=== PATIENT | female | born 1960 | race Caucasian/White ===

== ENCOUNTER 2022-03-18 17:28 | Inpatient (IN) | payer BC ==
[~2022-03-18] VITALS: Ht 161 cm; Wt 42.0 kg
[2022-03-18 17:55] LABS: BASOPHILS # (AUTO) 0.1 10^3/uL (0.0-0.1); BASOPHILS % (AUTO) 1 % (0-10); EOSINOPHILS # (AUTO) 0.3 10^3/uL (0.0-0.3); EOSINOPHILS % (AUTO) 2 % (0-10); HEMATOCRIT 42 % (35-52); HEMOGLOBIN 14.3 g/dL (11.5-16.0); LYMPHOCYTES # (AUTO) 2.9 10^3/uL (1.0-4.0); LYMPHOCYTES % (AUTO) 20 % (12-44); MEAN CORPUSCULAR HEMOGLOBIN 32 pg (25-34); MEAN CORPUSCULAR HGB CONC 34 g/dL (32-36); MEAN CORPUSCULAR VOLUME 93 fL (80-99); MEAN PLATELET VOLUME 9.7 fL (9.0-12.2); MONOCYTES # (AUTO) 1.4 10^3/uL (0.0-1.0); MONOCYTES % (AUTO) 10 % (0-12); NEUTROPHILS # (AUTO) 9.6 10^3/uL (1.8-7.8); NEUTROPHILS % (AUTO) 67 % (42-75); PLATELET COUNT 284 10^3/uL (130-400); WHITE BLOOD COUNT 14.3 10^3/uL (4.3-11.0)
[2022-03-18 17:57] LABS: ALBUMIN 4.1 GM/DL (3.2-4.5); POTASSIUM 3.8 MMOL/L (3.6-5.0)
[2022-03-18 17:58] LABS: CALCIUM 9.5 MG/DL (8.5-10.1)
[2022-03-18 17:59] LABS: TOTAL PROTEIN 7.6 GM/DL (6.4-8.2)
[2022-03-18 18:01] LABS: BILIRUBIN,TOTAL 0.4 MG/DL (0.1-1.0)
[2022-03-18 18:03] LABS: CREATININE SERUM 0.68 MG/DL (0.60-1.30)
--- NOTE | 2022-03-18 18:06 | Diagnostic Imaging Report ---
INDICATION: Slurred speech and right arm tingling. TECHNIQUE: Multiple contiguous axial images were obtained through the brain without the use of intravenous contrast. Auto Exposure Controls were utilized during the CT exam to meet ALARA standards for radiation dose reduction. COMPARISON: There is no prior study for comparison. There is no extra-axial fluid collection. No intracranial hemorrhage. No intracranial mass or mass effect. No midline shift. The ventricles are normal in size and position. There appears to be a small old infarct in the left occipital lobe. Calvarial windows appear normal. 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 No acute hemorrhage or acute intracranial finding. Dictated by: Dictated on workstation # [id number]
--- NOTE | 2022-03-18 18:08 | ED Neurological Problem ---
General Chief Complaint: Neurological Problems Stated Complaint: ARM BECOMING NUMB, HARD TO TALK Nursing Triage Note: PT AMB TO [facility] 7 WITH COMPLAINT OF SLURRED SPEECH AND RIGHT ARM WEAKNESS. STATES SYMPTOMS STARTED A FEW DAYS AGO. Source: patient Exam Limitations: no limitations History of Present Illness Date Seen by Provider: Mar 18, 2022 Time Seen by Provider: 17:45 Initial Comments This is a 61-year-old female who presented to ER with complaints of right hand numbness and intermittent slurring of speech. Symptom onset was 2 days ago. States that the symptoms have been intermittent for several days, today her symptoms began this morning. She has no PCP, reports no past medical history other than carpal tunnel in her right hand. She is a pack per day smoker with chronic cough. Has no numbness of her lower extremities, forearm, upper arm or shoulder. No facial drooping or numbness. Denies recent fall or trauma. No slurring of speech at this time. Does not take any home medications. Denies alcohol use and illicit drug use including marijuana. Denies fever, chills, vision changes, shortness of breath, chest pain, nausea, vomiting, diarrhea, abdominal pain, dysuria, or hematuria. Allergies and Home Medications Allergies Coded Allergies: No Known Drug Allergies (Unverified , 03/18/22) Patient Home Medication List Home Medication List Reviewed: Yes Review of Systems Review of Systems Constitutional: see HPI Past Lcktzsi-Vnutaq-Dcpxvv Hx Patient Social History Tobacco Use?: Yes Tobacco type used: Cigarettes Smoking Status: Current Everyday Smoker Use of E-Cig and/or Vaping dev: No Substance use?: No Alcohol Use?: No Pt feels they are or have been: No Physical Exam Vital Signs Vital Signs - First Documented 03/18/22 17:33 Temp 36.3 Pulse 90 Resp 25 B/P (MAP) 140/104 (116) Pulse Ox 91 O2 Delivery Room Air Capillary Refill : Less Than 3 Seconds Height, Weight, BMI Height: '" Weight: lbs. oz. 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 as tested, no motor/sensory deficits, alert, normal mood/affect, oriented x 3; No aphasia, No motor weakness, No sensory deficit Crainal Nerves: normal hearing, normal speech, PERRL Coordination/Gait: normal finger to nose, normal gait Motor/Sensory: no motor deficit, no sensory deficit, no pronator drift Skin: normal color, warm/dry Stroke NIH Stroke Scale Assessment Select: Initial Level of Consciousness: 0=Alert (0), Level of Consciousness- Questions: 0=Answers both month/age (0), LOC Commands: 0=Performs both tasks (0), Visual King: 0=No visual loss (0), Facial Movement (Facial Paresis): 0=Normal symmetrical mnt (0), Motor Function-Arms Right: 0=No drift (0), Motor Function-Arms Left: 0=No drift (0), Motor Function-Legs Right: 0=No drift (0), Motor Function-Legs Left: 0=No drift (0), Limb Ataxia: 0=Absent (0), Sensory: 0=Normal:no loss (0), Best Language: 0=No aphasia (0), Dysarthria: 0=Normal (0), Extinction & Inattention: 0=No abnormality (0), Total: 0 Focused Exam Lactate Level 03/18/22 19:07: Lactic Acid Level 0.81 Lactic Acid Level Laboratory Tests Test 03/18/22 19:07 Lactic Acid Level 0.81 MMOL/L (0.50-2.00) Progress/Results/Core Measures Results/Orders Lab Results Laboratory Tests Test 03/18/22 17:39 03/18/22 18:16 03/18/22 19:00 03/18/22 19:07 Range/Units White Blood Count 14.3 H 4.3-11.0 10^3/uL Red Blood Count 4.54 3.80-5.11 10^6/uL Hemoglobin 14.3 11.5-16.0 g/dL Hematocrit 42 35-52 % Mean Corpuscular Volume 93 80-99 fL Mean Corpuscular Hemoglobin 32 25-34 pg Mean Corpuscular Hemoglobin Concent 34 32-36 g/dL Red Cell Distribution Width 13.2 10.0-14.5 % Platelet Count 284 130-400 10^3/uL Mean Platelet Volume 9.7 9.0-12.2 fL Immature Granulocyte % (Auto) 1 % Neutrophils (%) (Auto) 67 42-75 % Lymphocytes (%) (Auto) 20 12-44 % Monocytes (%) (Auto) 10 0-12 % Eosinophils (%) (Auto) 2 0-10 % Basophils (%) (Auto) 1 0-10 % Neutrophils # (Auto) 9.6 H 1.8-7.8 10^3/uL Lymphocytes # (Auto) 2.9 1.0-4.0 10^3/uL Monocytes # (Auto) 1.4 H 0.0-1.0 10^3/uL Eosinophils # (Auto) 0.3 0.0-0.3 10^3/uL Basophils # (Auto) 0.1 0.0-0.1 10^3/uL Immature Granulocyte # (Auto) 0.1 0.0-0.1 10^3/uL Neutrophils % (Manual) 63 % Lymphocytes % (Manual) 24 % Monocytes % (Manual) 9 % Eosinophils % (Manual) 3 % Basophils % (Manual) 1 % Band Neutrophils 0 % Blood Morphology Comment NORMAL Prothrombin Time 13.5 12.2-14.7 SEC INR Comment 1.0 0.8-1.4 Activated Partial Thromboplast Time 36 H 24-35 SEC D-Dimer > 20.00 H 0.00-0.49 UG/ML Sodium Level 137 135-145 MMOL/L Potassium Level 3.8 3.6-5.0 MMOL/L Chloride Level 104 98-107 MMOL/L Carbon Dioxide Level 23 21-32 MMOL/L Anion Gap 10 5-14 MMOL/L Blood Urea Nitrogen 14 7-18 MG/DL Creatinine 0.68 0.60-1.30 MG/DL Estimat Glomerular Filtration Rate 100 BUN/Creatinine Ratio 21 Glucose Level 147 H 70-105 MG/DL Calcium Level 9.5 8.5-10.1 MG/DL Corrected Calcium 9.4 8.5-10.1 MG/DL Total Bilirubin 0.4 0.1-1.0 MG/DL Aspartate Amino Transf (AST/SGOT) 25 5-34 U/L Alanine Aminotransferase (ALT/SGPT) 23 0-55 U/L Alkaline Phosphatase 92 40-136 U/L Troponin I 0.562 *H <0.028 NG/ML C-Reactive Protein High Sensitivity 1.04 H 0.00-0.50 MG/DL Total Protein 7.6 6.4-8.2 GM/DL Albumin 4.1 3.2-4.5 GM/DL Procalcitonin 0.07 <0.10 NG/ML Thyroid Stimulating Hormone (TSH) 0.21 L 0.35-4.94 UIU/ML Urine Color YELLOW Urine Clarity CLOUDY Urine pH 7.0 5-9 Urine Specific [place] 1.020 1.016-1.022 Urine Protein TRACE H NEGATIVE Urine Glucose (UA) NEGATIVE NEGATIVE Urine Ketones NEGATIVE NEGATIVE Urine Nitrite POSITIVE H NEGATIVE Urine Bilirubin NEGATIVE NEGATIVE Urine Urobilinogen 0.2 < = 1.0 MG/DL Urine Leukocyte Esterase TRACE H NEGATIVE Urine RBC (Auto) TRACE-I H NEGATIVE Urine RBC 0-2 /HPF Urine WBC 0-2 /HPF Urine Squamous Epithelial Cells 0-2 /HPF Urine Crystals NONE /LPF Urine Bacteria LARGE H /HPF Urine Casts NONE /LPF Urine Mucus NEGATIVE /LPF Urine Culture Indicated YES Influenza Type A (RT-PCR) Not Detected Not Detecte Influenza Type B (RT-PCR) Not Detected Not Detecte SARS-CoV-2 RNA (RT-PCR) Not Detected Not Detecte Lactic Acid Level 0.81 0.50-2.00 MMOL/L My Orders Orders - 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 Accucheck Stat ONCE (03/18/22 17:41) Ekg Tracing (03/18/22 17:42) Cbc With Automated Diff (03/18/22 17:43) Protime With Inr (03/18/22 17:43) Partial Thromboplastin Time (03/18/22 17:43) Comprehensive Metabolic Panel (03/18/22 17:43) Fibrin Degradation Products (03/18/22 17:43) Troponin I Ada (03/18/22 17:43) Ua Culture If Indicated (03/18/22 17:43) Chest 1 View, Ap/Pa Only (03/18/22 17:43) Nothing By Mouth (03/18/22 Dinner) Ed Iv/Invasive Line Start (03/18/22 17:43) Vital Signs Stroke Patient Q15M (03/18/22 17:43) Ct Head Wo-R/O Stroke (03/18/22 17:43) O2 (03/18/22 17:43) Intake & Output 06,14,22 (03/18/22 17:43) Monitor-Rhythm Ecg Trace Only (03/18/22 17:43) Dysphagia Screening Tool [id number] (03/18/22 17:43) Lipid Panel (03/19/22 06:00) Hemoglobin A1c (03/18/22 17:43) Thyroid Stimulating Hormone (03/18/22 17:51) Manual Differential (03/18/22 17:39) Urine Culture (03/18/22 18:16) Aspirin Chewable Tablet (Baby Aspirin Ch (03/18/22 18:45) Ceftriaxone 1 Gm Pre-Mix (Rocephin 1 Gm (03/18/22 18:45) Lactic Acid Analyzer (03/18/22 18:38) Ct Angio Chest W (03/18/22 18:38) Iohexol Injection (Omnipaque 350 Mg/Ml 1 (03/18/22 19:00) Received Contrast (Hold Metformin- Contr (03/18/22 19:00) Ns (Ivpb) (Sodium Chloride 0.9% Ivpb Bag (03/18/22 19:00) Blood Culture (03/18/22 18:51) Ns Iv 1000 Ml (Sodium Chloride 0.9%) (03/18/22 19:00) Covid 19 Inhouse Test (03/18/22 18:51) Influenza A And B By Pcr (03/18/22 18:51) Hs C Reactive Protein (03/18/22 18:51) Procalcitonin (Pct) (03/18/22 18:51) Metoprolol Succinate (Xl) Tab (Toprol Xl (03/18/22 20:15) Medications Given in ED Current Medications Medications Dose Ordered Sig/Ibrahima Route Start Time Stop Time Status Last Admin Dose Admin Aspirin 324 mg ONCE ONCE PO 03/18/22 18:45 03/18/22 18:46 DC 03/18/22 19:06 324 MG Ceftriaxone Sodium/Dextrose 50 ml @ 100 mls/hr ONCE ONCE IV 03/18/22 18:45 03/18/22 19:14 DC 03/18/22 19:08 100 MLS/HR Iohexol 100 ml ONCE ONCE IV 03/18/22 19:00 03/18/22 19:01 DC 03/18/22 18:56 58 ML Sodium Chloride 100 ml ONCE ONCE IV 03/18/22 19:00 03/18/22 19:01 DC 03/18/22 18:56 80 ML Vital Signs/I&O 03/18/22 17:33 Temp 36.3 Pulse 90 Resp 25 B/P (MAP) 140/104 (116) Pulse Ox 91 O2 Delivery Room Air Blood Pressure Mean: 116 FSBG Bedside Testing Finger Stick Blood Glucose: 139 Progress Progress Note : Progress Note Patient presents with symptoms concerning for acute CVA versus TIA. Differential diagnosis includes AMI, hypoglycemia or other metabolic derangement. She has a chronically ill appearance. Given her 40+ pack year history would be concerned for metastatic disease. However, presentation more concerning for TIA versus CVA. EKG without evidence of STEMI. Fingerstick blood sugar not hypoglycemic and clinical picture does not suggest other stroke mimic. Will plan to work-up for acute CVA\\TIA. Stroke protocol ordered, she has not been evaluated by her primary care provider in over 7 years. We will add hemoglobin A1c, TSH. On exam she has no focal or gross neurological deficits at this time. CBC reviewed and she is noted to have a WBC of 14.3, platelet count normal at 284, no left shift. Her electrolytes on her chemistry are within normal limits, creatinine 0.68, BUN 14, hemoglobin A1c pending. Her LFTs are unremarkable. She was noted to have an elevated troponin 0.562, CRP 1.04, TSH 0.21. Her procalcitonin is 0.07. She was found to have a significantly elevated D-dimer greater than 20.00. Again this would cause concern for metastatic origin versus acute pulmonary embolism. Her initial oxygen saturation was 90% on room air. Orders placed for CT angio chest, ABG, repeat troponin. Her chest x-ray showed concern for right lung base pneumonia. Her head CT showed a small old infarct in her left occipital lobe. No acute hemorrhage or intracranial finding. CT angio chest was negative for pulmonary embolism. Ther e is adenopathy in the mediastinum and right hilum findings are worrisome for neoplastic process. Consider follow-up PET scan for further evaluation. Additionally there is an extensive infiltrate in the right lower lobe compatible with pneumonia., She has severe diffuse emphysematous changes with questionable bilateral adrenal thickening. Due to significant pneumonia, concern for metastatic process, no primary care or established provider for follow-up recommending inpatient admission. Orders given for Rocephin 1 g IV. Reviewed case with Dr. Jiang, hospitalist on-call. She accepted admission to cardiac stepdown unit. Request consultation with cardiology. Contact made with Dr. Acuña, farmworker livestock and he recommended admission, start beta-ava, and aspirin. Her first dose of aspirin was given in the ER. States that we can cancel repeat troponin. Her oxygen was 97% on carlos m air so ABG was discontinued at this time. Throughout her entire emergency department visit she never had any complaints of shortness of breath or chest pain. Again making metastatic process the more likely diagnosis with underlying pneumonia. Discussed with her that she is a high risk for CVA as it sound like she had some TIA symptoms and I recommend admission for treatment of her pneumonia and management of chronic undiagnosed underlying processes. States that she did not want to be hospitalized and would prefer to go home. Reviewed the severity of her symptoms and she needs to have close follow-up, she does not have a primary care provider so would not advisable for her to discharge AGAINST MEDICAL ADVICE. Strongly encouraged her to stay so we can complete her CVA work-up. She is agreeable to hospital admission. States that she wanted to go outside and "feed my habit", when asked to clarify stated she wanted to go outside and have a cigarette. Discussed that she will be unable to smoke during her hospital admission and I would be glad to provide her with nicotine patch or alternative, she declined stating nicotine substitutes make her feel "icky". While waiting for bed assignment she started to become very anxious stating she needed to go outside and have a cigarette. Again offered a nicotine alternative and stated that she would not be allowed to go outside and smoke as this is a smoke-free campus as well as it is not advisable with her given health status. She was able to settle back in ED cot. No additional needs or concerns voiced. Initial ECG Impression Date: Mar 18, 2022 Initial ECG Impression Time: 17:41 Initial ECG Rate: 90 Initial ECG Rhythm: Normal Sinus Initial ECG Intervals: Normal Initial ECG Impression: Nonspecific Changes Initial ECG Comparisson: No Previous ECG Available Diagnostic Imaging Diagonstic Imaging: CT Time of Consult: 18:06 Reviewed: Other (Upon review there is no large hemorrhage, ischemia, or mass-effect seen, pending radiology review. ), Reviewed by Mi Diagonstic Imaging: Xray Plain Films/CT/US/NM/MRI: chest Time of Consult: 18:07 Reviewed: Other ( x-ray reviewed, she is noted to have right mid and lower lobe opacities. No pneumothorax. Pending radiology review.), Reviewed by Mi Diagonstic Imaging: CT (angio) Plain Films/CT/US/NM/MRI: chest Comments Impression: 1. No evidence for pulmonary embolism. 2. Airspace consolidation noted involving the right lower lobe posteriorly. In addition, there is an ill-defined hypoattenuating component along the posterior aspect of the airspace consolidation measuring 1.2 x 4.6 x 3 cm. The primary consideration is pneumonia with an internal area of necrotic components (necrotizing pneumonia). Alternatively, a poorly encapsulated developing parenchymal abscess is also a consideration. 3. There is a prominent right perihilar and subcarinal lymphadenopathy encaps ulating the regional pulmonary artery segments with the lymph nodes measuring up to 2 cm in size. Less prominent left hilar lymph node is noted measuring 1 cm with nonspecific AP window lymph nodes. These are presumed reactive. However, follow-up resolution is recommended. 4. Minimal subsegmental presumed atelectatic changes noted in left posterior basal segments. There is evidence of extensive centrilobular emphysema. No pleural effusion or pneumothorax. 5. There is a 6 mm noncalcified juxtapleural pulmonary nodule noted in the anterior basal segment of the right lower lobe (series 2; image 126 ). Fleischner Society guidelines in high risk patients (history of smoking or other known risk factors) he recommended CT chest follow-up in 6 to 12 months and then at 18 and 24 months. Departure Communication (Admissions) Time/Spoke to Admitting Phy: 20:09 Dr. Jiang, Hospitalist. Time/Spoke to Consulting Phy: 20:15 Dr. Acuña, Shear Operator. Impression Primary Impression: Pneumonia Additional Impressions: Hypertension Elevated troponin Disposition: ADMITTED INPATIENT Condition: Stable Admissions Decision to Admit Reason: Admit from ER (General) Decision to Admit/Date: Mar 18, 2022 Time/Decision to Admit Time: 20:09 Departure-Patient Inst. Referrals: NO,LOCAL PHYSICIAN (PCP/Family) Primary Care Physician AMITA BREAUX APRN Mar 18, 2022 18:08
--- NOTE | 2022-03-18 18:09 | Diagnostic Imaging Report ---
INDICATION: Stroke. EXAMINATION: Frontal chest was obtained at 5:48 p.m. There is cardiomegaly. There is alveolar infiltrate in the right lung base suspicious for pneumonia. The left lung is clear. There is no pneumothorax or pleural fluid. IMPRESSION: Cardiomegaly. Alveolar infiltrate is seen in the right lung base suspicious for pneumonia. Follow-up is recommended. Dictated by: Dictated on workstation # [id number]
[2022-03-18 18:18] LABS: BAND NEUTROPHILS 0 %; BASOPHILS % (MANUAL) 1 %; EOSINOPHILS % (MANUAL) 3 %; LYMPHOCYTES % (MANUAL) 24 %; MONOCYTES % (MANUAL) 9 %; NEUTROPHILS % (MANUAL) 63 %; RBC MORPH NORMAL
[2022-03-18 18:20] LABS: BILIRUBIN,URINE NEGATIVE (NEGATIVE); CLARITY,URINE CLOUDY; COLOR,URINE YELLOW; GLUCOSE, URINE (UA) NEGATIVE (NEGATIVE); KETONES,URINE NEGATIVE (NEGATIVE); LEUKOCYTE ESTERASE ,URINE TRACE (NEGATIVE); NITRITE,URINE POSITIVE (NEGATIVE); PROTEIN,URINE TRACE (NEGATIVE)
[2022-03-18 18:33] LABS: BACTERIA,URINE LARGE /HPF; RBC,URINE 0-2 /HPF; SQUAMOUS EPITHELIAL CELL,UR 0-2 /HPF; WBC,URINE 0-2 /HPF
[2022-03-18 18:37] LABS: FIBRIN DEGRADATION PRODUCTS > 20.00 UG/ML (0.00-0.49); PARTIAL THROMBOPLASTIN TIME 36 SEC (24-35); PROTHROMBIN TIME PATIENT 13.5 SEC (12.2-14.7)
[2022-03-18] MEDS ORDERED: ASPIRIN 81 MG CHEW (CHILDREN'S ASA) PO ONE (18:45)
[2022-03-18] MEDS ORDERED: cefTRIAXone 1 GM PRE-MIX 50 ML IV ONE (18:45)
[2022-03-18] MEDS ORDERED: NS IV 1000 ML 1,000 ML IV SCH (19:00)
[2022-03-18] MEDS ORDERED: IOHEXOL 350 MG/ML 100 ML (OMNIPAQUE 350) VIAL IV ONE (19:00)
[2022-03-18] MEDS ORDERED: NS 100 ML (IVPB) BAG IV ONE (19:00)
[2022-03-18] MEDS ORDERED: HOLD METFORMIN - RECEIVED CONTRAST 20 ML VIAL IV SCH (19:00)
[2022-03-18] MEDS ORDERED: meTOproloL SUCCINATE 50 MG (TOPROL XL) TAB PO SCH (20:15)
--- NOTE | 2022-03-18 21:21 | Diagnostic Imaging Report ---
INDICATION: Positive D-dimer TECHNIQUE: Multiple contiguous axial images were obtained through the chest after uneventful bolus administration of intravenous contrast. 3D reconstructed CTA MIP acquisitions were also performed. Auto Exposure Controls were utilized during the CT exam to meet ALARA standards for radiation dose reduction. There is no prior chest CTA for comparison. The pulmonary parenchymal vessels show no evidence of pulmonary emboli. Thoracic aorta shows no evidence of aneurysm or dissection. There is adenopathy in the mediastinum with a left paratracheal node measuring about 2.7 x 1.3 cm. There is adenopathy in the right hilum, with right hilar masses measuring about 3.5 x 3.6 cm. Lung parenchymal windows demonstrate diffuse emphysematous changes. There is a consolidation in the right lower lobe posteriorly and laterally, suspicious for pneumonia. Visualized portions of the upper abdomen demonstrate some questionable bilateral adrenal thickening. IMPRESSION: No CT evidence of pulmonary emboli or acute aortic pathology.. There is adenopathy in the mediastinum and right hilum, findings are worrisome for a neoplastic process. Consider followup PET imaging for further evaluation. There is a extensive infiltrate in the right lower lobe compatible with pneumonia. There are severe diffuse emphysematous changes. There is questionable bilateral adrenal thickening. Dictated by: Dictated on workstation # [id number]
[2022-03-18 22:37] VITALS: BP 141/94
[2022-03-18 22:45] VITALS: BP 135/81
[2022-03-18] MEDS ORDERED: LORazepam 0.5 MG (ATIVAN) TABLET PO PRN (22:45)
[2022-03-18] MEDS ORDERED: MELATONIN 3 MG TABLET PO PRN (22:45)
[2022-03-18] MEDS ORDERED: morphine INJ 4 MG/ML 1 ML (VIAL/SYRINGE) IV PRN (22:45)
[2022-03-18] MEDS ORDERED: ANTACID SUSP 30 ML UDC (MYLANTA) PO PRN (22:45)
[2022-03-18] MEDS ORDERED: cloNIDine 0.1 MG (CATAPRES) TAB PO PRN (22:45)
[2022-03-18] MEDS ORDERED: MILK OF MAGNESIA 400 MG/5 ML 30 ML UDC PO PRN (22:45)
[2022-03-18] MEDS ORDERED: polyethylene glycoL POWDER 17 GM (MIRALAX) PACK PO PRN (22:45)
[2022-03-18] MEDS ORDERED: ONDANSETRON 4 MG/2 ML (SDV) Z0FRAN IV PRN (22:45)
[2022-03-18] MEDS ORDERED: ONDANSETRON 4 MG (ZOFRAN) ORAL DISSOLVE TAB PO PRN (22:45)
[2022-03-18] MEDS ORDERED: LORazepam INJ 2 MG/ML (ATIVAN) VIAL IVP PRN (22:45)
[2022-03-18] MEDS ORDERED: AZITHROMYCIN INJECTION 500 MG in NS (IVPB) 250 ML IV ONE (22:45)
[2022-03-18] MEDS ORDERED: cefTRIAXone 1 GM PRE-MIX 50 ML IV SCH (22:45)
[2022-03-18] MEDS ORDERED: ACETAMINOPHEN 325 MG TABLET PO PRN (22:45)
[2022-03-18] MEDS ORDERED: diphenhydrAMINE 25 MG TAB (BENADRYL) PO PRN (22:45)
[2022-03-18] MEDS ORDERED: LACTULOSE SYRUP 10GM/15ML (ENULOSE) 30ML UDC PO PRN (22:45)
[2022-03-18] MEDS ORDERED: diphenhydrAMINE 50 MG/ML INJ (BENADRYL) IVP PRN (22:45)
[2022-03-18] MEDS ORDERED: BISACODYL 10 MG SUPP (DULCOLAX) PR PRN (22:45)
[2022-03-18] MEDS ORDERED: CALCIUM CARBONATE 500 MG (TUMS) TAB.CHEW PO PRN (22:45)
[2022-03-18 23:00] VITALS: BP 135/84
[2022-03-18 23:15] VITALS: BP_SYST 121; BP_SYST 141; BP_DIAS 77; BP_DIAS 94
[2022-03-18] MEDS ORDERED: ENOXAPARIN 40 MG/0.4 ML (LOVENOX) SYR SC SCH (23:30)
[2022-03-18] MEDS ORDERED: RT-ALBUTEROL/IPRATROPIUM 3 ML (DUONEB) VIAL INH PRN (23:45)
[2022-03-19] VITALS (9 sets, daily range): BP systolic 99–125; BP diastolic 68–88
[2022-03-19] MEDS: NS IV 1000 ML 1,000 ML IV SCH ×2 (00:15→11:38)
[2022-03-19] MEDS: RT-ALBUTEROL/IPRATROPIUM 3 ML (DUONEB) VIAL INH SCH ×4 (02:34→15:08)
[2022-03-19 04:44] LABS: BASOPHILS # (AUTO) 0.1 10^3/uL (0.0-0.1); BASOPHILS % (AUTO) 1 % (0-10); EOSINOPHILS # (AUTO) 0.4 10^3/uL (0.0-0.3); EOSINOPHILS % (AUTO) 3 % (0-10); HEMATOCRIT 39 % (35-52); HEMOGLOBIN 12.9 g/dL (11.5-16.0); LYMPHOCYTES # (AUTO) 1.8 10^3/uL (1.0-4.0); LYMPHOCYTES % (AUTO) 17 % (12-44); MEAN CORPUSCULAR HEMOGLOBIN 31 pg (25-34); MEAN CORPUSCULAR HGB CONC 33 g/dL (32-36); MEAN CORPUSCULAR VOLUME 94 fL (80-99); MEAN PLATELET VOLUME 9.9 fL (9.0-12.2); MONOCYTES # (AUTO) 1.1 10^3/uL (0.0-1.0); MONOCYTES % (AUTO) 11 % (0-12); NEUTROPHILS # (AUTO) 7.3 10^3/uL (1.8-7.8); NEUTROPHILS % (AUTO) 67 % (42-75); PLATELET COUNT 254 10^3/uL (130-400); WHITE BLOOD COUNT 10.8 10^3/uL (4.3-11.0)
[2022-03-19 05:06] LABS: ALBUMIN 3.4 GM/DL (3.2-4.5); POTASSIUM 3.8 MMOL/L (3.6-5.0)
[2022-03-19 05:07] LABS: CALCIUM 8.6 MG/DL (8.5-10.1)
[2022-03-19 05:09] LABS: TOTAL PROTEIN 6.2 GM/DL (6.4-8.2)
[2022-03-19 05:10] LABS: BILIRUBIN,TOTAL 0.3 MG/DL (0.1-1.0)
[2022-03-19 05:12] LABS: CREATININE SERUM 0.57 MG/DL (0.60-1.30)
[2022-03-19] MEDS: inSUlin ASPART (NovoLOG) 1 UNIT/0.01 ML (CHARGE PER UNIT) SC SCH ×3 (06:12→16:21)
--- NOTE | 2022-03-19 08:51 | Diagnostic Imaging Report ---
PROCEDURE: MR imaging of the brain without contrast. TECHNIQUE: Multiplanar, multisequence MR imaging of the brain was performed without contrast. INDICATION: TIA. FINDINGS: There are multifocal areas of diffusion restriction in the frontal lobes, parietal lobes and occipital lobes bilaterally as well as the posterior fossa. This is compatible with embolic CVA. There is otherwise mild prominence of ventricles and sulci with some mild chronic microvascular ischemic disease. There is no hydrocephalus. There is no midline shift. There is no mass, hemorrhage or extra-axial fluid collection. There are no areas of hemorrhage. The sinuses and mastoid air cells are clear. IMPRESSION: Multifocal bilateral areas of diffusion restriction as described compatible with embolic CVA. Atrophy and some chronic microvascular ischemic disease. No evidence of intracranial hemorrhage. Dictated by: Dictated on workstation # [id number]
[2022-03-19] MEDS ORDERED: SENNOSIDES 8.6 MG (SENOKOT) TAB PO SCH (09:00)
[2022-03-19] MEDS ORDERED: ASPIRIN 81 MG CHEW (CHILDREN'S ASA) PO SCH (09:00)
[2022-03-19] MEDS ORDERED: NICOTINE 21 MG (NICODERM) PATCH TD SCH (09:00)
[2022-03-19] MEDS ORDERED: DOCUSATE SODIUM 100 MG (COLACE) CAP PO SCH (09:00)
[2022-03-19] MEDS ORDERED: meTOprolol TARTRATE 25 MG (LOPRESSOR) TABLET PO SCH (09:00)
--- NOTE | 2022-03-19 09:02 | Consultation-Cardiology ---
HPI-Cardiology Cardiology Consultation: Date of Consultation 03/19/22 Date of Admission 03-18-22 Attending Physician Edith,Local Physician Admitting Physician Admitting Physician: Debi Salazar DO Attending Physician: Xuan Erazo MD Consulting Physician Lindy Acuña MD M[facility]-Cpktnu-Lsjotc Hx Patient Social History Smoking Status: Current Everyday Smoker Have you traveled recently?: No Alcohol Use?: No Pt feels they are or have been: No Tobacco type used: Cigarettes Past Medical History PM As described under Assessment. Allergies and Home Medications Allergies Coded Allergies: No Known Drug Allergies (Unverified , 03/18/22) Physical Exam-Cardiology Physical Exam Vital Signs/I&O 03/18/22 03/18/22 03/18/22 03/18/22 22:15 22:37 22:45 23:00 Pulse 67 66 64 67 Resp 25 24 24 24 B/P (MAP) 136/95 141/94 135/81 135/84 Pulse Ox 95 95 93 93 O2 Delivery Room Air 03/18/22 03/18/22 03/18/22 03/18/22 23:15 23:15 23:33 23:42 Temp 36.3 Pulse 64 66 65 Resp 18 B/P (MAP) 121/77 Pulse Ox 92 95 91 O2 Delivery Room Air 03/19/22 03/19/22 03/19/22 03/19/22 00:00 01:00 01:00 02:00 Pulse 67 79 76 79 Resp 20 20 22 B/P (MAP) 104/76 (85) 117/83 (94) 105/83 (90) Pulse Ox 96 98 93 O2 Delivery Room Air 03/19/22 03/19/22 03/19/22 03/19/22 02:34 03:00 03:30 04:00 Temp 36.3 Pulse 82 69 Resp 20 20 B/P (MAP) 112/79 (90) 99/68 (78) Pulse Ox 93 93 92 O2 Delivery Room Air 03/19/22 07:00 Pulse 78 03/18/22 23:59 Intake Total 1050 ml Balance 1050 ml Capillary Refill : Less Than 3 Seconds Data Review Labs Laboratory Tests 03/18/22 17:39: White Blood Count 14.3H, Red Blood Count 4.54, Hemoglobin 14.3, Hematocrit 42, Mean Corpuscular Volume 93, Mean Corpuscular Hemoglobin 32, Mean Corpuscular Hemoglobin Concent 34, Red Cell Distribution Width 13.2, Platelet Count 284, Mean Platelet Volume 9.7, Immature Granulocyte % (Auto) 1, Neutrophils (%) (A uto) 67, Lymphocytes (%) (Auto) 20, Monocytes (%) (Auto) 10, Eosinophils (%) (Auto) 2, Basophils (%) (Auto) 1, Neutrophils # (Auto) 9.6H, Lymphocytes # (Auto) 2.9, Monocytes # (Auto) 1.4H, Eosinophils # (Auto) 0.3, Basophils # (Auto) 0.1, Immature Granulocyte # (Auto) 0.1, Neutrophils % (Manual) 63, Lymphocytes % (Manual) 24, Monocytes % (Manual) 9, Eosinophils % (Manual) 3, Basophils % (Manual) 1, Band Neutrophils 0, Blood Morphology Comment NORMAL, Pro thrombin Time 13.5, INR Comment 1.0, Activated Partial Thromboplast Time 36H, D- Dimer > 20.00H, Sodium Level 137, Potassium Level 3.8, Chloride Level 104, Car bon Dioxide Level 23, Anion Gap 10, Blood Urea Nitrogen 14, Creatinine 0.68, Estimat Glomerular Filtration Rate 100, BUN/Creatinine Ratio 21, Glucose Level 147H, Calcium Level 9.5, Corrected Calcium 9.4, Total Bilirubin 0.4, Aspartate Amino Transf (AST/SGOT) 25, Alanine Aminotransferase (ALT/SGPT) 23, Alkaline Phosphatase 92, Troponin I 0.562*H, C-Reactive Protein High Sensitivity 1.04H, Total Protein 7.6, Albumin 4.1, Procalcitonin 0.07, Thyroid Stimulating Hormone (TSH) 0.21L 03/18/22 18:16: Urine Color YELLOW, Urine Clarity CLOUDY, Urine pH 7.0, Urine Specific [place] 1.020, Urine Protein TRACEH, Urine Glucose (UA) NEGATIVE, Urine Ketones NEGATIVE, Urine Nitrite POSITIVEH, Urine Bilirubin NEGATIVE, Urine Urobilinogen 0.2, Urine Leukocyte Esterase TRACEH, Urine RBC (Auto) TRACE-IH, Urine RBC 0-2, Urine WBC 0-2, Urine Squamous Epithelial Cells 0-2, Urine Crystals NONE, Urine Bacteria LARGEH, Urine Casts NONE, Urine Mucus NEGATIVE, Urine Culture Indicated YES 03/18/22 19:00: Influenza Type A (RT-PCR) Not Detected, Influenza Type B (RT-PCR) Not Detected, SARS-CoV-2 RNA (RT-PCR) Not Detected 03/18/22 19:07: Lactic Acid Level 0.81 03/19/22 04:27: White Blood Count 10.8, Red Blood Count 4.13, Hemoglobin 12.9, Hematocrit 39, Mean Corpuscular Volume 94, Mean Corpuscular Hemoglobin 31, Mean Corpuscular Hemoglobin Concent 33, Red Cell Distribution Width 13.2, Platelet Count 254, Mean Platelet Volume 9.9, Immature Granulocyte % (Auto) 1, Neutrophils (%) (Auto) 67, Lymphocytes (%) (Auto) 17, Monocytes (%) (Auto) 11, Eosinophils (%) ( Auto) 3, Basophils (%) (Auto) 1, Neutrophils # (Auto) 7.3, Lymphocytes # (Auto) 1.8, Monocytes # (Auto) 1.1H, Eosinophils # (Auto) 0.4H, Basophils # (Auto) 0.1, Immature Granulocyte # (Auto) 0.1, Sodium Level 140, Potassium Level 3.8, Chloride Level 109H, Carbon Dioxide Level 21, Anion Gap 10, Blood Urea Nitrogen 10, Creatinine 0.57L, Estimat Glomerular Filtration Rate 104, BUN/Creatinine Ratio 18, Glucose Level 94, Calcium Level 8.6, Corrected Calcium 9.1, Total Bilirubin 0.3, Aspartate Amino Transf (AST/SGOT) 18, Alanine Aminotransferase (ALT/SGPT) 18, Alkaline Phosphatase 76, Troponin I 0.386*H, Total Protein 6.2L, Albumin 3.4, Triglycerides Level 74, Cholesterol Level 145, LDL Cholesterol Direct 85, VLDL Cholesterol 15, HDL Cholesterol 47, Free Thyroxine 1.12 Laboratory Tests 03/18/22 17:39 03/19/22 04:27 Radiology NAME: SARAH BETH MORALES [facility] REC#: [id number] PT STATUS: REG ER : 1960 PHYSICIAN: AMITA BREAUX APRN ADMIT DATE: 03/18/22/ER Signed Date of Exam:03/18/22 CHEST 1 VIEW, AP/PA ONLY INDICATION: Stroke. EXAMINATION: Frontal chest was obtained at 5:48 p.m. There is cardiomegaly. There is alveolar infiltrate in the right lung base suspicious for pneumonia. The left lung is clear. There is no pneumothorax or pleural fluid. IMPRESSION: Cardiomegaly. Alveolar infiltrate is seen in the right lung base suspicious for pneumonia. Follow-up is recommended. Dictated by: Dictated on workstation # [id number] Dict: 03/18/221805 Trans: 03/18/221910 [facility] [id number] Interpreted by: PEGGY PENN MD Electronically signed by: PEGGY PENN MD 03/18/221910 NAME: SARAH BETH MORALES [facility] REC#: [id number] PT STATUS: REG ER : 1960 PHYSICIAN: AMITA BREAUX APRN ADMIT DATE: 03/18/22/ER Signed Date of Exam:03/18/22 CT HEAD WO-R/O STROKE INDICATION: Slurred speech and right arm tingling. TECHNIQUE: Multiple contiguous axial images were obtained through the brain without the use of intravenous contrast. Auto Exposure Controls were utilized during the CT exam to meet ALARA standards for radiation dose reduction. COMPARISON: There is no prior study for comparison. There is no extra-axial fluid collection. No intracranial hemorrhage. No intracranial mass or mass effect. No midline shift. The ventricles are normal in size and position. There appears to be a small old infarct in the left occipital lobe. Calvarial windows appear normal. 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 No acute hemorrhage or acute intracranial finding. Dictated by: Dictated on workstation # [id number] Dict: 03/18/221801 Trans: 03/18/221910 [facility] [id number] Interpreted by: PEGGY PENN MD Electronically signed by: PEGGY PENN MD 03/18/221910 NAME: SARAH BETH MORALES [facility] REC#: [id number] PT STATUS: ADM IN : 1960 PHYSICIAN: AMITA BREAUX APRN ADMIT DATE: 03/18/22/CSD Signed Date of Exam:03/18/22 CT ANGIO CHEST W INDICATION: Positive D-dimer TECHNIQUE: Multiple contiguous axial images were obtained through the chest after uneventful bolus administration of intravenous contrast. 3D reconstructed CTA MIP acquisitions were also performed. Auto Exposure Controls were utilized during the CT exam to meet ALARA standards for radiation dose reduction. There is no prior chest CTA for comparison. The pulmonary parenchymal vessels show no evidence of pulmonary emboli. Thoracic aorta shows no evidence of aneurysm or dissection. There is adenopathy in the mediastinum with a left paratracheal node measuring about 2.7 x 1.3 cm. There is adenopathy in the right hilum, with right hilar masses measuring about 3.5 x 3.6 cm. Lung parenchymal windows demonstrate diffuse emphysematous changes. There is a consolidation in the right lower lobe posteriorly and laterally, suspicious for pneumonia. Visualized portions of the upper abdomen demonstrate some questionable bilateral adrenal thickening. IMPRESSION: No CT evidence of pulmonary emboli or acute aortic pathology.. There is adenopathy in the mediastinum and right hilum, findings are worrisome for a neoplastic process. Consider followup PET imaging for further evaluation. There is a extensive infiltrate in the right lower lobe compatible with pneumonia. There are severe diffuse emphysematous changes. There is questionable bilateral adrenal thickening. Dictated by: Dictated on workstation # [id number] Dict: 03/18/222113 Trans: 03/18/222218 [facility] [id number] Interpreted by: PEGGY PENN MD Electronically signed by: PEGGY PENN MD 03/18/222218 NAME: SARAH BETH MORALES [facility] REC#: [id number] PT STATUS: ADM IN : 1960 PHYSICIAN: DEBI SALAZAR DO ADMIT DATE: 03/18/22/[facility] Draft Date of Exam:03/19/22 MRI BRAIN W/O CONTRAST PROCEDURE: MR imaging of the brain without contrast. TECHNIQUE: Multiplanar, multisequence MR imaging of the brain was performed without contrast. INDICATION: TIA. FINDINGS: There are multifocal areas of diffusion restriction in the frontal lobes, parietal lobes and occipital lobes bilaterally as well as the posterior fossa. This is compatible with embolic CVA. There is otherwise mild prominence of ventricles and sulci with some mild chronic microvascular ischemic disease. There is no hydrocephalus. There is no midline shift. There is no mass, hemorrhage or extra-axial fluid collection. There are no areas of hemorrhage. The sinuses and mastoid air cells are clear. IMPRESSION: Multifocal bilateral areas of diffusion restriction as described compatible with embolic CVA. Atrophy and some chronic microvascular ischemic disease. No evidence of intracranial hemorrhage. Dictated on workstation # [id number] Dict: 03/19/22 0804 Trans: 03/19/22 0850 [facility] [id number] Interpreted by: DEBO CASTILLO MD Electronically signed by: A/P-Cardiology Assessment/Admission Diagnosis CVA - MRI of 03-19-22 showed Multifocal bilateral areas of diffusion restriction as described compatible with embolic CVA. - management per stroke team - previous CVA RLL pneumonia COPD Tobaccoism - cessation advised Clinical Quality Measures DVT/VTE Risk/Contraindication: Contraindications-Mechi: Other *list below* Other: possible dvt's SOLO RUSSO Mar 19, 2022 09:01
--- NOTE | 2022-03-19 09:50 | Diagnostic Imaging Report ---
PROCEDURE: US Venous Lower Ext Alli. TECHNIQUE: Multiple Real-time grayscale images were obtained over the lower extremities in various projections, bilaterally. Additional duplex Doppler and color Doppler images were also obtained. INDICATION: Pneumonia. FINDINGS: There is no evidence of right or left lower extremity DVT. Both lower extremity deep venous systems demonstrate normal compressibility with normal response to augmentation and Valsalva. No fluid collection or mass is detected. IMPRESSION: No evidence of right or left lower extremity DVT. Dictated by: Dictated on workstation # [id number]
[2022-03-19] MEDS ORDERED: MULT-1067 PO (10:57)
--- NOTE | 2022-03-19 11:55 | History & Physical-Hospitalist ---
ENRIKE TONY 03/19/22 1155: History of Present Illness HPI/Chief Complaint Pt is a 61yo female active smoker presenting with constant R. arm numbness and slurred speech that hasn't occurred before. Pt states this started when she woke up yesterday which prompted her visit to the ED yesterday. Pt noticed that the is some associated numbness in the L. arm as well without any aggravating or alleviating factors. Due to pt's presenting neurological symptoms, pt received a Brain MRI showing multifocal bilateral areas of diffusion restriction along with atrophy and some chronic microvascular ischemic disease. There was absence on intracranial hemorrhage. Due to elevated D-dimer pt received a chest CT showing prominent medistinal LAD. Pt states she has smoked 1/2 ppd for about 20 years and rarely drinks alcohol. At the time of the interview pt was without an complaints and was sitting in the bed receiving an LE doppler. Date Seen 03/19/22 Attending Physician No,Local Physician PCP Admitting Physician: Debi Jiang DO Attending Physician: José Miguel Huynh MD Referring Physician Date of Admission Mar 18, 2022 at 20:12 Home Medications & Allergies Home Medications Reviewed patient Home Medication Reconciliation performed by pharmacy medication reconciliations two way radio technician and/or nursing. Patients Allergies have been reviewed. Allergies Allergies Coded Allergies orange (Verified Allergy, Unknown, 03/19/22) Past Peexfro-Wsbbqm-Ecsikk Hx Patient Social History Tobacco Use?: Yes Tobacco type used: Cigarettes Smoking Status: Current Everyday Smoker Use of E-Cig and/or Vaping dev: No Substance use?: No Alcohol Use?: No Pt feels they are or have been: No Immunizations Up To Date Tetanus Booster (TDap): Unknown Current Status Advance Directives: No Primary Language: Albanian Preferred Spoken Language: Albanian Family Medical History No Pertinent Family Hx Review of Systems Constitutional: No chills, No diaphoresis, No fever EENTM: No hearing loss, No ear pain, No blurred vision, No double vision, No eye pain, No vision loss Respiratory: No cough, No short of breath Gastrointestinal: No abdominal pain, No constipation, No diarrhea, No nausea, No vomiting Genitourinary: No decreased output, No dysuria, No frequency Psychiatric/Neurological: Denies Headache; Numbness, Paresthesia Physical Exam Physical Exam Vital Signs Vital Signs - First Documented 03/18/22 17:33 Temp 36.3 Pulse 90 Resp 25 B/P (MAP) 140/104 (116) Pulse Ox 91 O2 Delivery Room Air Capillary Refill : Less Than 3 Seconds Height, Weight, BMI Height: '" Weight: lbs. oz. kg; 16.31 BMI Method: General Appearance: No Apparent Distress Respiratory: Chest Non Tender, Lungs Clear, Normal Breath Sounds Cardiovascular: Regular Rate, Rhythm, No Edema, No Murmur, Normal Peripheral Pulses Gastrointestinal: Normal Bowel Sounds, No Organomegaly, Non Tender, Soft Neurologic/Psychiatric: Alert, Oriented x3, Aphasia, Sensory Deficit Results Results/Procedures Labs Laboratory Tests 03/18/22 17:39 03/19/22 04:27 Patient resulted labs reviewed. Imaging Date of Exam:03/18/22 CT HEAD WO-R/O STROKE INDICATION: Slurred speech and right arm tingling. 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 No acute hemorrhage or acute intracranial finding. CT ANGIO CHEST W INDICATION: Positive D-dimer IMPRESSION: No CT evidence of pulmonary emboli or acute aortic pathology.. There is adenopathy in the mediastinum and right hilum, findings are worrisome for a neoplastic process. Consider followup PET imaging for further evaluation. There is a extensive infiltrate in the right lower lobe compatible with pneumonia. There are severe diffuse emphysematous changes. There is questionable bilateral adrenal thickening. MRI BRAIN W/O CONTRAST INDICATION: TIA. IMPRESSION: Multifocal bilateral areas of diffusion restriction as described compatible with embolic CVA. Atrophy and some chronic microvascular ischemic disease. No evidence of intracranial hemorrhage. US VENOUS LOWER EXT GIOVANNA INDICATION: Pneumonia. IMPRESSION: No evidence of right or left lower extremity DVT. Assessment/Plan Admission Diagnosis CVA Mediastinal LAD Elevated Troponin HTN UTI Active smoker w/ 10pack yr history presenting w/ signs and symptoms of stroke ECG sinus rhythm no signs of atrial fibrillation or flutter Elevated D-dimer CXR- Alveolar infiltrate is seen in the right lung base suspicious for pneumonia CTA Chest/Thorax ordered --> mediastinal LAD potential concern for neoplasia; Pulmonary nodule and centrolobular emphysema reported Brain MRI --> Multifocal b/l area of diffusion restriction consistent with embolic CVA LE Doppler b/l --> w/o any acute abnormalities ECHO --> EF 60-65% w/o structural abnormalities UA- + nitrites, leukocyte esterase, and large amount bacteria UCx Preliminary Gram Negative rods Started on Ceftriaxone and Azitromycin due to pneumonia and UTI Aspirin for stroke protocol Clonidine, Metoprolol Succinate and Tartrate for HTN Lovenox Consider Transfer due for broncoscopy and bx Tobacco Use 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
--- NOTE | 2022-03-19 14:55 | Diagnostic Imaging Report ---
PROCEDURE: US carotid duplex, bilateral. TECHNIQUE: Multiple real-time grayscale images were obtained over the carotid arteries in various projections, bilaterally. Additional spectral analysis and color Doppler duplex images were also obtained. INDICATION: CVA. FINDINGS: Grayscale images show minimal plaque at the left carotid bulb. The velocities and waveforms appear normal at both carotid bifurcations. Vertebral arteries are both patent with antegrade flow. IMPRESSION: Minimal atherosclerotic change of the left carotid bifurcation. There is no hemodynamically significant stenosis. Parameters based on the consensus panel Deleon-Scale and Doppler ultrasound criteria published December 2002, Radiology, Volume 229. DOPPLER (peak systolic velocity M/S Right Left CCA 0.67 0.73 ICA Proximal 0.56 0.61 ICA Mid 0.68 0.67 ICA Distal 0.71 0.55 RATIO 1.07 0.92 ECA 1.01 0.88 VERT 0.59 0.58 Dictated by: Dictated on workstation # [id number]
--- NOTE | 2022-03-19 16:53 | Consultation-Cardiology ---
HPI-Cardiology Cardiology Consultation: Date of Consultation 03/19/22 Time Seen by a Provider: 09:30 Date of Admission Attending Physician No,Local Physician Admitting Physician Admitting Physician: Debi Jiang DO Attending Physician: Xuan Erazo MD Consulting Physician MAYELIN GONGORA MD, MA, FACP, FACC, FSCAI, CCDS HPI: Chief Complaint: Slurring of speech, R arm numbness and weakness 61 yo woman admitted to Dr Erazo yesterday after she presented with R arm weakness/numbness and slurring of the speech. Diagnosed with thromboembolic CVA. No cp or palp or syncope. Denies shortness of breath. No fever or chills. Denies swelling Review of Systems-Cardiology Review of Systems Constitutional: malaise; No weight loss, No weight gain Eyes: No vision change Ears/Nose/Throat: No ear discharge, No recent hearing loss Respiratory: As described under HPI Cardiovascular: As described under HPI Gastrointestinal: No diarrhea, No nausea, No vomiting Genitourinary: No dysuria, No hematuria Musculoskeletal: No back pain, No joint pain Skin: No rash, No ulcerations Psychiatric/Neurological: As described under HPI Hematologic: No bleeding abnormalities JIN-Jytylk-Tvkndq Hx Patient Social History Smoking Status: Current Everyday Smoker Have you traveled recently?: No Alcohol Use?: No Pt feels they are or have been: No Tobacco type used: Cigarettes Past Medical History PMH As described under Assessment. Family Medical History Family Medical History: She does not repot fam h/o early CAD or SCD Allergies and Home Medications Allergies Coded Allergies: orange (Verified Allergy, Unknown, 03/19/22) Patient Home Medication List Home Medication List Reviewed: Yes Multivitamin/Iron/Folic Acid (Centrum Adults Tablet) 18 Mg Iron-400 Mcg Tablet, 1 EACH PO DAILY, (Reported) Entered as Reported by: SRAVANTHI DRIVER on 03/19/22 6145 Last Action: Reviewed Physical Exam-Cardiology Physical Exam Vital Signs/I&O 03/19/22 03/19/22 03/19/22 03/19/22 07:00 08:00 09:06 10:47 Temp 36.4 Pulse 78 65 Resp 18 B/P (MAP) 125/86 (99) Pulse Ox 97 94 94 O2 Delivery Room Air Room Air Room Air 03/19/22 03/19/22 03/19/22 03/19/22 12:00 12:35 15:08 16:00 Temp 36.9 36.8 Pulse 65 58 69 Resp 16 24 B/P (MAP) 121/79 (93) 123/88 (100) Pulse Ox 93 95 92 O2 Delivery Room Air Room Air Room Air 03/19/22 00:00 Intake Total 1050 ml Balance 1050 ml Capillary Refill : Less Than 3 Seconds Constitutional: AAO x 3, well-developed, other (thin appearing) HEENT: PERRL, EOMI, hearing is well preserved; No xanthelasmas are seen Neck: carotid pulses are 2 + bilaterally, with good upstrokes Respiratory: No accessory muscle use; chest expansion is symmetric, chest is bilaterally symmetric, other (good air entry, prolonged exp) Cardiovascular: regular rate-rhythm, S1 and S2, systolic murmur (soft [place] at card base) Gastrointestinal: No tender; soft; No guarding, No rebound; audible bowel sounds Extremities: No clubbing, No cyanosis, No significant edema Neurologic/Psychiatric: oriented x 3, other (appears to move all limbs equally, mild slurring of the speech) Skin: warm/dry; No rash on exposed areas, No ulcerations on exposed areas Data Review Labs Laboratory Tests 03/18/22 17:39: White Blood Count 14.3H, Red Blood Count 4.54, Hemoglobin 14.3, Hematocrit 42, Mean Corpuscular Volume 93, Mean Corpuscular Hemoglobin 32, Mean Corpuscular Hemoglobin Concent 34, Red Cell Distribution Width 13.2, Platelet Count 284, Mean Platelet Volume 9.7, Immature Granulocyte % (Auto) 1, Neutrophils (%) (Auto) 67, Lymphocytes (%) (Auto) 20, Monocytes (%) (Auto) 10, Eosinophils (%) (Auto) 2, Basophils (%) (Auto) 1, Neutrophils # (Auto) 9.6H, Lymphocytes # (Au to) 2.9, Monocytes # (Auto) 1.4H, Eosinophils # (Auto) 0.3, Basophils # (Auto) 0.1, Immature Granulocyte # (Auto) 0.1, Neutrophils % (Manual) 63, Lymphocytes % (Manual) 24, Monocytes % (Manual) 9, Eosinophils % (Manual) 3, Basophils % (Manual) 1, Band Neutrophils 0, Blood Morphology Comment NORMAL, Prothrombin Time 13.5, INR Comment 1.0, Activated Partial Thromboplast Time 36H, D-Dimer > 20.00H, Sodium Level 137, Potassium Level 3.8, Chloride Level 104, Carbon Dioxide Level 23, Anion Gap 10, Blood Urea Nitrogen 14, Creatinine 0.68, Estimat Glomerular Filtration Rate 100, BUN/Creatinine Ratio 21, Glucose Level 147H, Calcium Level 9.5, Corrected Calcium 9.4, Total Bilirubin 0.4, Aspartate Amino Transf (AST/SGOT) 25, Alanine Aminotransferase (ALT/SGPT) 23, Alkaline Phosphatase 92, Troponin I 0.562*H, C-Reactive Protein High Sensitivity 1.04H, Total Protein 7.6, Albumin 4.1, Procalcitonin 0.07, Thyroid Stimulating Hormone (TSH) 0.21L 03/18/22 18:16: Urine Color YELLOW, Urine Clarity CLOUDY, Urine pH 7.0, Urine Specific [place] 1.020, Urine Protein TRACEH, Urine Glucose (UA) NEGATIVE, Urine Ketones NEGATIVE, Urine Nitrite POSITIVEH, Urine Bilirubin NEGATIVE, Urine Urobilinogen 0.2, Urine Leukocyte Esterase TRACEH, Urine RBC (Auto) TRACE-IH, Urine RBC 0-2, Urine WBC 0-2, Urine Squamous Epithelial Cells 0-2, Urine Crystals NONE, Urine Bacteria LARGEH, Urine Casts NONE, Urine Mucus NEGATIVE, Urine Culture Indicated YES 03/18/22 19:00: Influenza Type A (RT-PCR) Not Detected, Influenza Type B (RT-PCR) Not Detected, SARS-CoV-2 RNA (RT-PCR) Not Detected 03/18/22 19:07: Lactic Acid Level 0.81 03/19/22 04:27: White Blood Count 10.8, Red Blood Count 4.13, Hemoglobin 12.9, Hematocrit 39, Mean Corpuscular Volume 94, Mean Corpuscular Hemoglobin 31, Mean Corpuscular Hemoglobin Concent 33, Red Cell Distribution Width 13.2, Platelet Count 254, Mean Platelet Volume 9.9, Immature Granulocyte % (Auto) 1, Neutrophils (%) (Auto) 67, Lymphocytes (%) (Auto) 17, Monocytes (%) (Auto) 11, Eosinophils (%) (Auto) 3, Basophils (%) (Auto) 1, Neutrophils # (Auto) 7.3, Lymphocytes # (Auto) 1.8, Monocytes # (Auto) 1.1H, Eosinophils # (Auto) 0.4H, Basophils # (Auto) 0.1, Immature Granulocyte # (Auto) 0.1, Sodium Level 140, Potassium Level 3.8, Chloride Level 109H, Carbon Dioxide Level 21, Anion Gap 10, Blood Urea Nitrogen 10, Creatinine 0.57L, Estimat Glomerular Filtration Rate 104, BUN/Creatinine Ratio 18, Glucose Level 94, Calcium Level 8.6, Corrected Calcium 9.1, Total Bilirubin 0.3, Aspartate Amino Transf (AST/SGOT) 18, Alanine Aminotransferase (ALT/SGPT) 18, Alkaline Phosphatase 76, Troponin I 0.386*H, Total Protein 6.2L, Albumin 3.4, Triglycerides Level 74, Cholesterol Level 145, LDL Cholesterol Direct 85, VLDL Cholesterol 15, HDL Cholesterol 47, Free Thyroxine 1.12 03/19/22 10:44: Glucometer 99 03/19/22 16:01: Glucometer 160H Microbiology 03/18/22 Blood Culture - Preliminary, Resulted No growth 03/18/22 Urine Culture - Preliminary, Resulted Gram Negative Bacillus 1 Laboratory Tests 03/18/22 17:39 03/19/22 04:27 A/P-Cardiology Assessment/Admission Diagnosis CVA - MRI of 03-19-22 showed multifocal bilateral areas of diffusion restriction compatible with embolic CVA - echo 03-19-22: LVEF 60-65%, mild MR, triv AI RLL pneumonia and hilar adenopathy/neoplasm - managed by the [facility] - CT chest 03-18-22: adenopathy in the mediastinum and right hilum, findings are worrisome for a neoplastic process. There is a extensive infiltrate in the right lower lobe compatible with pneumonia. COPD Tobaccoism - cessation advised Discussion and Recomendations * Advised to quit smoking * Consider ILR implant to eval for PAF as the cause of thromboembolic CVA * Management of pneumonia and ?neoplasm is with the [facility] sv[facility] * I discussed her case with Dr Erazo this am Clinical Quality Measures DVT/VTE Risk/Contraindication: Contraindications-Mechi: Other *list below* Other: possible dvt's MAYELIN GONGORA MD FACP [facility] CCDS Mar 19, 2022 16:53
--- NOTE | 2022-03-19 20:31 | Short Stay Summary-Hospitalist ---
History of Present Illness HPI/Chief Complaint Matilde Iraheta is a 61 year old female who presented with stroke like symptoms. She was having hand numbness and word finding difficulties. She had been having these symptoms for several days prior to arrival. She is a poor historian due to her expressive aphasia. She has a chronic cough. She denies shortness of breath. She denies fevers. Source: patient Exam Limitations: clinical condition Date Seen 03/19/22 Time Seen by a Provider: 10:20 Attending Physician No,Local Physician PCP Admitting Physician: Debi Jiang DO Attending Physician: Xuan Erazo MD Referring Physician Date of Admission Mar 18, 2022 at 20:12 Home Medications & Allergies Home Medications Reviewed patient Home Medication Reconciliation performed by pharmacy medication reconciliations salvage engineering technician and/or nursing. Patients Allergies have been reviewed. Allergies Allergies Coded Allergies orange (Verified Allergy, Unknown, 03/19/22) Past Hcxvumr-Jnzkze-Fzopha Hx Patient Social History Tobacco Use?: Yes Tobacco type used: Cigarettes Smoking Status: Current Everyday Smoker Use of E-Cig and/or Vaping dev: No Substance use?: No Alcohol Use?: No Pt feels they are or have been: No Immunizations Up To Date Tetanus Booster (TDap): Unknown Current Status Advance Directives: No Primary Language: Belarusian Preferred Spoken Language: Belarusian Family Medical History No Pertinent Family Hx Review of Systems Constitutional: no symptoms reported EENTM: no symptoms reported Respiratory: cough Cardiovascular: no symptoms reported Gastrointestinal: no symptoms reported Physical Exam Physical Exam Vital Signs Vital Signs - First Documented 03/18/22 17:33 Temp 36.3 Pulse 90 Resp 25 B/P (MAP) 140/104 (116) Pulse Ox 91 O2 Delivery Room Air Capillary Refill : Less Than 3 Seconds Height, Weight, BMI Height: '" Weight: lbs. oz. kg; 16.31 BMI Method: General Appearance: No Apparent Distress, Thin Neck: Normal Inspection, Supple Respiratory: Lungs Clear, Normal Breath Sounds, No Respiratory Distress Cardiovascular: Regular Rate, Rhythm, No Edema, No Murmur, Normal Peripheral Pulses Gastrointestinal: Normal Bowel Sounds, No Organomegaly, Non Tender, Soft Extremity: Normal Inspection, No Pedal Edema Neurologic/Psychiatric: Alert, Oriented x3, Aphasia, Sensory Deficit Skin: Normal Color, Warm/Dry Results Results/Procedures Labs Laboratory Tests 03/18/22 17:39 03/19/22 04:27 Patient resulted labs reviewed. Imaging: Reviewed Imaging Films, Reviewed Imaging Report, Discussed Imaging with Radiologist Short Stay Diagnosis Discharge Diagnosis-Short Stay Admission Diagnosis Acute embolic stroke Final Discharge Diagnosis Acute embolic stroke, mediastinal and hilar lymphadenopathy concerning for malignancy Conclusion Plan Acute embolic stroke Mediastinal lymphadenopathy Hilar lymphadenopathy RLL PNA NSTEMI HTN UTI Tobacco abuse Transferred to [facility] for bronchoscopy with biopsy Diagnosis/Problems Diagnosis/Problems (1) Acute embolic stroke Status: Acute (2) Mediastinal lymphadenopathy Status: Acute (3) Hilar lymphadenopathy Status: Acute (4) RLL pneumonia Status: Acute (5) NSTEMI (non-ST elevation myocardial infarction) Status: Acute (6) Tobacco abuse Status: Chronic Clinical Quality Measures DVT/VTE Risk/Contraindication: Contraindications-Mechi: Other *list below* Other: possible dvt's XUAN ERAZO MD Mar 19, 2022 20:30
[2022-03-19] MEDS ORDERED: AZITHROMYCIN 250 MG TAB (ZITHROMAX) PO SCH (21:00)
[2022-03-19] MEDS ORDERED: cefTRIAXone 1 GM PRE-MIX 50 ML IV SCH (21:00)
[2022-03-20] MEDS ORDERED: ENOXAPARIN INJECTION 30 MG/0.3 ML SYR SC SCH
== END 2022-03-19 17:15 | disposition short-term general hospital (02) | DRG 64 ==
LOC: ER 17:32 → CSD 20:12
PROVIDERS: ADMIT Internal Medicine; ATTEND Internal Medicine
DX: I63.40 Cerebral infarction due to embolism of unspecified cerebral artery (principal); I21.4 Non-ST elevation (NSTEMI) myocardial infarction; J18.9 Pneumonia, unspecified organism; N39.0 Urinary tract infection, site not specified; R47.01 Aphasia; G83.21 Monoplegia of upper limb affecting right dominant side; R29.700 NIHSS score 0; R59.0 Localized enlarged lymph nodes; J43.9 Emphysema, unspecified; I10 Essential (primary) hypertension; F17.210 Nicotine dependence, cigarettes, uncomplicated; Z20.822 Contact with and (suspected) exposure to COVID-19
CPT/HCPCS: 36415; 70450; 70551; 71045; 71275; 80053; 80061; 81000; 82947; 83036; 83605; 84145; 84439; 84443; 84481; 84484; 85007; 85025; 85027; 85379; 85610; 85730; 86141; 87040; 87077; 87088; 87636; 93005; 93041; 93306; 93880; 93970; 94640; 94664

== ENCOUNTER → 2022-03-30 | Outpatient (CLI) | payer BC ==
[~2022-03-30] MED LIST: MULT-1067 PO
[2022-03-30 11:54] LABS: BASOPHILS # (AUTO) 0.2 10^3/uL (0.0-0.1); BASOPHILS % (AUTO) 1 % (0-10); EOSINOPHILS # (AUTO) 0.2 10^3/uL (0.0-0.3); EOSINOPHILS % (AUTO) 1 % (0-10); HEMATOCRIT 45 % (35-52); HEMOGLOBIN 14.8 g/dL (11.5-16.0); LYMPHOCYTES % (AUTO) 14 % (12-44); MEAN CORPUSCULAR HEMOGLOBIN 31 pg (25-34); MEAN CORPUSCULAR HGB CONC 33 g/dL (32-36); MEAN CORPUSCULAR VOLUME 94 fL (80-99); MEAN PLATELET VOLUME 9.3 fL (9.0-12.2); MONOCYTES # (AUTO) 1.2 10^3/uL (0.0-1.0); MONOCYTES % (AUTO) 8 % (0-12); NEUTROPHILS # (AUTO) 11.2 10^3/uL (1.8-7.8); NEUTROPHILS % (AUTO) 75 % (42-75); PLATELET COUNT 405 10^3/uL (130-400); WHITE BLOOD COUNT 14.8 10^3/uL (4.3-11.0)
[2022-03-30 12:15] LABS: ALBUMIN 4.1 GM/DL (3.2-4.5); BILIRUBIN,TOTAL 0.5 MG/DL (0.1-1.0); CALCIUM 9.9 MG/DL (8.5-10.1); CREATININE SERUM 0.62 MG/DL (0.60-1.30); POTASSIUM 4.3 MMOL/L (3.6-5.0)
[2022-03-30 12:38] LABS: LYMPHOCYTES % (MANUAL) 18 %; MONOCYTES % (MANUAL) 5 %; NEUTROPHILS % (MANUAL) 77 %
[2022-03-30 12:39] LABS: RBC MORPH NORMAL
== END ==
LOC: LAB 11:23
PROVIDERS: ATTEND Family Medicine
DX: Q28.3 Other malformations of cerebral vessels (principal)
CPT/HCPCS: 36415; 80053; 85007; 85027

== ENCOUNTER → 2022-03-31 | Outpatient (RCR) | payer BC | LOC: ONC 12:29 | PROVIDERS: ATTEND Internal Medicine Hematology & Oncology | DX: C34.90 Malignant neoplasm of unspecified part of unspecified bronchus or lung (principal) | CPT/HCPCS: 99204 ==

== ENCOUNTER → 2022-04-16 | Outpatient (CLI) | payer BC ==
[~2022-04-16] MED LIST changes: +CATHETER FLUSH 10 ML SYR IVP PRN
== END ==
LOC: RAD 09:00
PROVIDERS: ATTEND Internal Medicine Hematology & Oncology
DX: C34.90 Malignant neoplasm of unspecified part of unspecified bronchus or lung (principal)

== ENCOUNTER 2022-04-21 09:39 | Outpatient (RCR) | payer BC ==
[~2022-04-21 09:39] MED LIST changes: -CATHETER FLUSH 10 ML SYR IVP PRN
[2022-04-29] MEDS ORDERED: CLOP-31 PO (10:07)
[2022-04-29] MEDS ORDERED: ATOR40TA70 PO (10:07)
[2022-04-29] MEDS ORDERED: ASPI-999 PO (10:07)
== END 2022-04-28 | disposition home or self-care (01) ==
PROVIDERS: ATTEND Family Medicine
DX: I63.9 Cerebral infarction, unspecified (principal); F80.9 Developmental disorder of speech and language, unspecified

== ENCOUNTER 2022-04-28 05:39 | Outpatient (CLI) | payer BC ==
[~2022-04-28] VITALS: Ht 187.9 cm; Wt 43.6 kg
[~2022-04-28 05:39] MED LIST changes: -ASPI-999 PO; -ATOR40TA70 PO; -CLOP-31 PO
[2022-04-29] MEDS ORDERED: ATOR40TA70 PO (10:07)
[2022-04-29] MEDS ORDERED: ASPI-999 PO (10:07)
[2022-04-29] MEDS ORDERED: CLOP-31 PO (10:07)
== END 2022-04-29 12:13 | disposition home or self-care (01) ==
LOC: PREOP 05:39
PROVIDERS: ATTEND Surgery
DX: Z01.818 Encounter for other preprocedural examination (principal)

== ENCOUNTER → 2022-04-28 | Outpatient (RCR) | payer BC ==
[~2022-04-28] MED LIST changes: +ASPI-999 PO; +ATOR40TA70 PO; +CLOP-31 PO
== END ==
LOC: ONC 04-22 12:51
PROVIDERS: ATTEND Internal Medicine Hematology & Oncology
DX: C34.90 Malignant neoplasm of unspecified part of unspecified bronchus or lung (principal); I63.9 Cerebral infarction, unspecified; I10 Essential (primary) hypertension; E78.2 Mixed hyperlipidemia; Z72.0 Tobacco use
CPT/HCPCS: 99205

== ENCOUNTER 2022-04-29 08:50 | Outpatient (RCR) | payer BC ==
[~2022-04-29] VITALS: Ht 157.5 cm; Wt 43.1 kg
[2022-04-29] MEDS ORDERED: FOSAPREPITANT (CANCER CENTER) 150 MG in NS (IVPB) CANCER CENTER ONLY 150 ML IV SCH (09:45)
[2022-04-29] MEDS ORDERED: PALONOSETRON HCL 0.25 MG, dexAMETHasone INJECTION 10 MG in NS (IVPB) 50 ML IV SCH (09:45)
[2022-04-29] MEDS ORDERED: NORMAL SALINE IV SCH (09:45)
[2022-04-29] MEDS ORDERED: HEParin (CENTRAL IV FLUSH) 500 UNIT/5 ML SYR IV PRN (09:45)
[2022-04-29] MEDS ORDERED: D5W IV SCH (09:45)
[2022-04-29] MEDS ORDERED: diphenhydrAMINE 25 MG TAB (BENADRYL) PO SCH (09:45)
[2022-04-29] MEDS ORDERED: NS IV 1000 ML (CANCER CTR) IV SCH (09:45)
[2022-04-29] MEDS ORDERED: PEMBROLIZUMAB 200 MG in NS (IVPB) 50 ML IV SCH (09:45)
[2022-04-29] MEDS ORDERED: FAMOTIDINE 20MG/2ML IV (PEPCID) IV PRN (09:45)
[2022-04-29] MEDS ORDERED: CARBOPLATIN IV SCH (09:45)
[2022-04-29] MEDS ORDERED: PACLITAXEL IV SCH (09:45)
[2022-04-29] MEDS ORDERED: ASPI-999 PO (10:07)
[2022-04-29] MEDS ORDERED: CLOP-31 PO (10:07)
[2022-04-29] MEDS ORDERED: ATOR40TA70 PO (10:07)
== END 2022-05-29 | disposition home or self-care (01) ==
LOC: ONC 08:50
PROVIDERS: ATTEND Internal Medicine Hematology & Oncology
DX: Z51.0 Encounter for antineoplastic radiation therapy (principal); C34.90 Malignant neoplasm of unspecified part of unspecified bronchus or lung; I63.9 Cerebral infarction, unspecified; I10 Essential (primary) hypertension; E78.2 Mixed hyperlipidemia; Z72.0 Tobacco use
CPT/HCPCS: 77300; 77301; 77334; 77338; 77470

== ENCOUNTER 2022-05-01 06:32 | Day surgery (SDC) | payer BC ==
[~2022-05-01] VITALS: Ht 188 cm; Wt 43.6 kg
[~2022-05-01 06:32] MED LIST changes: +ASPI-999 PO; +ATOR40TA70 PO; +CLOP-31 PO
[2022-05-01] MEDS ORDERED: ceFAZolin INJECTION 2,000 MG in NS (IVPB) 50 ML IV ONE (06:45)
[2022-05-01] MEDS ORDERED: LACTATED RINGERS 1,000 ML IV PRN (06:45)
[2022-05-01] MEDS ORDERED: CATHETER FLUSH 10 ML SYR IVP PRN (07:00)
[2022-05-01] MEDS ORDERED: HEParin (CENTRAL IV FLUSH) 500 UNIT/5 ML SYR ONE (07:02)
[2022-05-01] MEDS ORDERED: 0.9% SODIUM CHLORIDE PF INJ 20 ML VIAL ONE (07:02)
[2022-05-01] MEDS ORDERED: LIDOCAINE/EPI 1%-1:100,000 (XYLOCAINE) 20ML ONE (07:02)
[2022-05-01 07:14] VITALS: BP 121/84
[2022-05-01] MEDS ORDERED: PROPOFOL INJECTION 0 ML IV ONE (07:17)
== END 2022-05-01 08:32 | disposition home or self-care (01) ==
LOC: SDC 06:32
PROVIDERS: ATTEND Surgery
DX: C34.90 Malignant neoplasm of unspecified part of unspecified bronchus or lung (principal); Z53.09 Procedure and treatment not carried out because of other contraindication
CPT/HCPCS: 87081

== ENCOUNTER 2022-05-02 13:19 | Emergency (ER) | payer BC ==
[2022-05-02 13:43] LABS: BASOPHILS # (AUTO) 0.1 10^3/uL (0.0-0.1); BASOPHILS % (AUTO) 1 % (0-10); EOSINOPHILS # (AUTO) 0.1 10^3/uL (0.0-0.3); EOSINOPHILS % (AUTO) 1 % (0-10); HEMATOCRIT 41 % (35-52); HEMOGLOBIN 13.9 g/dL (11.5-16.0); LYMPHOCYTES # (AUTO) 1.1 10^3/uL (1.0-4.0); LYMPHOCYTES % (AUTO) 6 % (12-44); MEAN CORPUSCULAR HEMOGLOBIN 31 pg (25-34); MEAN CORPUSCULAR HGB CONC 34 g/dL (32-36); MEAN CORPUSCULAR VOLUME 92 fL (80-99); MEAN PLATELET VOLUME 9.4 fL (9.0-12.2); MONOCYTES # (AUTO) 1.4 10^3/uL (0.0-1.0); MONOCYTES % (AUTO) 7 % (0-12); NEUTROPHILS # (AUTO) 16.9 10^3/uL (1.8-7.8); NEUTROPHILS % (AUTO) 86 % (42-75); PLATELET COUNT 329 10^3/uL (130-400); WHITE BLOOD COUNT 19.7 10^3/uL (4.3-11.0)
[2022-05-02] MEDS ORDERED: IOHEXOL 350 MG/ML 100 ML (OMNIPAQUE 350) VIAL IV ONE (13:45)
[2022-05-02] MEDS ORDERED: NS 100 ML (IVPB) BAG IV ONE (13:45)
[2022-05-02] MEDS ORDERED: LIDOCAINE UROJET 2% GEL 10 ML PKG TOP ONE (13:45)
[2022-05-02] MEDS ORDERED: HOLD METFORMIN - RECEIVED CONTRAST 20 ML VIAL IV SCH (13:45)
[2022-05-02 13:47] LABS: INR 1.3 (0.8-1.4); PROTHROMBIN TIME PATIENT 16.3 SEC (12.2-14.7)
[2022-05-02 13:57] LABS: ALBUMIN 3.6 GM/DL (3.2-4.5); POTASSIUM 4.1 MMOL/L (3.6-5.0)
[2022-05-02 13:58] LABS: CALCIUM 9.1 MG/DL (8.5-10.1)
--- NOTE | 2022-05-02 13:58 | ED Neurological Problem ---
General Chief Complaint: Neuro-Stroke Like Symptoms Stated Complaint: STROKE Nursing Triage Note: PT BROGUHT IN BY [facility] FROM HOME. STATES PT WAS FOUND ON FLOOR BY FAMILY WITH SYMTPOMS SIMILAR TO A PREVIOUS STROKE. LKWT WAS 9-10AM. PT IS ALERT AND TALKING. DOES NOT REMEMBER WHAT HAPPENED. PT HAS RESIDUAL RIGHT SIDE WEAKNESS FROM PREVIOUS STROKE. TODAY SHE IS HAVING LEFT SIDE WEAKNESS. PT IS LOOKING TOWARDS RIGHT SIDE AND WILL NOT LOOK TOWARDS LEFT. Source: patient, family, EMS Exam Limitations: no limitations History of Present Illness Date Seen by Provider: May 02, 2022 Time Seen by Provider: 13:19 Initial Comments 61-year-old female presents to the emergency department via EMS after found her in the floor. Independent history taken from EMS, the patient, her and her daughter. Her daughter initially told EMS on scene that her last known well time was between 9 and 10 AM. When arrives he claims that he saw her normal at [id number]:00. He found her on the floor was unable to get her up. Notably she had a stroke causing some right-sided weakness has been progressively improving in March of this year. She was recently found to have lung cancer and was supposed to get her port placed on but she had not stopped her Plavix so this was postponed. She has not taken her Plavix since . Her also states she has a "small hole in her heart." They do plan to aggressively treat her lung cancer once her port has been placed. No other recent illnesses. On arrival the patient complains of a headache. She has clear left-sided neglect and right forced gaze. NIH 15 She is not a candidate for lytics as she had a stroke within the last 3 months. Allergies and Home Medications Allergies Coded Allergies: aspirin (Unverified Allergy, Unknown, 05/01/22) Stomach upset with high dose. orange (Verified Allergy, Unknown, 04/29/22) Patient Home Medication List Home Medication List Reviewed: Yes Aspirin (Aspirin) 81 Mg Tab.chew, 81 MG PO DAILY, (Reported) Entered as Reported by: Kasia Musa on 04/29/22 1007 Atorvastatin Calcium (Atorvastatin Calcium) 40 Mg Tablet, 40 MG PO HS, (Reported) Entered as Reported by: Kasia Musa on 04/29/221006 Clopidogrel Bisulfate (Plavix) 75 Mg Tablet, 75 MG PO DAILY, (Reported) Entered as Reported by: Kasia Musa on 04/29/22 1007 Multivitamin/Iron/Folic Acid (Centrum Adults Tablet) 18 Mg Iron-400 Mcg Tablet, 1 EACH PO DAILY, (Reported) Entered as Reported by: SRAVANTHI DRIVER on 03/19/22 1057 Review of Systems Review of Systems Constitutional: no symptoms reported Past Tlkayxy-Butuai-Rfsmdv Hx Patient Social History Tobacco Use?: No Smoking Status: Unknown if Ever Smoked Use of E-Cig and/or Vaping dev: No Substance use?: No Alcohol Use?: No Pt feels they are or have been: No Immunizations Up To Date Tetanus Booster (TDap): More than 5yrs First/Initial COVID19 Vaccinat: 05/30/20 Second COVID19 Vaccination Santy: 07/07/20 Third COVID19 Vaccination Date: 05/30/20 Seasonal Allergies Seasonal Allergies: Yes Past Medical History Surgery/Hospitalization HX: Lung cancer, PFO, stroke March 2022 causing right-sided deficits Surgeries: Yes (OVARIAN CYST DRAINGING) Respiratory: Yes Pneumonia Currently Using CPAP: No Currently Using BIPAP: No Cardiac: No Neurological: Yes Stroke Genitourinary: Yes UTI-Chronic Gastrointestinal: No Musculoskeletal: No Endocrine: No HEENT: No Loss of Vision: Denies Hearing Impairment: Denies Cancer: Yes Lung Did You Recieve Any Treatments: No Psychosocial: No Integumentary: No Blood Disorders: No Adverse Reaction/Blood Tranf: No Family Medical History No Pertinent Family Hx Physical Exam Vital Signs Vital Signs - First Documented 05/02/22 13:25 Temp 36.3 Pulse 80 Resp 20 B/P (MAP) 140/87 (104) Pulse Ox 91 O2 Delivery Nasal Cannula O2 Flow Rate 2.00 Capillary Refill : Height, Weight, BMI Height: '" Weight: lbs. oz. kg; 12.33 BMI Method: General Appearance: no apparent distress HEENT: PERRL/EOMI, normal ENT inspection, pharynx normal Neck: non-tender, supple, normal inspection Respiratory: chest non-tender, lungs clear, normal breath sounds, no respiratory distress, no accessory muscle use Cardiovascular: regular rate, rhythm, no murmur Gastrointestinal: normal bowel sounds, non tender, soft, no organomegaly Back: normal inspection Extremities: non-tender, normal inspection, normal capillary refill Neurologic/Psychiatric: oriented x 3, other (Patient is alert and oriented. She has left-sided facial droop, left flaccid paralysis upper and lower extremity. She has complete neglect of her left side. She has some mild dysarthria.) Skin: normal color, warm/dry Progress/Results/Core Measures Results/Orders Lab Results Laboratory Tests Test 05/02/22 13:29 05/02/22 14:11 Range/Units White Blood Count 19.7 H 4.3-11.0 10^3/uL Red Blood Count 4.44 3.80-5.11 10^6/uL Hemoglobin 13.9 11.5-16.0 g/dL Hematocrit 41 35-52 % Mean Corpuscular Volume 92 80-99 fL Mean Corpuscular Hemoglobin 31 25-34 pg Mean Corpuscular Hemoglobin Concent 34 32-36 g/dL Red Cell Distribution Width 13.2 10.0-14.5 % Platelet Count 329 130-400 10^3/uL Mean Platelet Volume 9.4 9.0-12.2 fL Immature Granulocyte % (Auto) 1 % Neutrophils (%) (Auto) 86 H 42-75 % Lymphocytes (%) (Auto) 6 L 12-44 % Monocytes (%) (Auto) 7 0-12 % Eosinophils (%) (Auto) 1 0-10 % Basophils (%) (Auto) 1 0-10 % Neutrophils # (Auto) 16.9 H 1.8-7.8 10^3/uL Lymphocytes # (Auto) 1.1 1.0-4.0 10^3/uL Monocytes # (Auto) 1.4 H 0.0-1.0 10^3/uL Eosinophils # (Auto) 0.1 0.0-0.3 10^3/uL Basophils # (Auto) 0.1 0.0-0.1 10^3/uL Immature Granulocyte # (Auto) 0.1 0.0-0.1 10^3/uL Neutrophils % (Manual) 90 % Lymphocytes % (Manual) 4 % Monocytes % (Manual) 4 % Eosinophils % (Manual) 1 % Basophils % (Manual) 0 % Band Neutrophils 1 % Blood Morphology Comment NORMAL Prothrombin Time 16.3 H 12.2-14.7 SEC INR Comment 1.3 0.8-1.4 Activated Partial Thromboplast Time 36 H 24-35 SEC D-Dimer > 20.00 H 0.00-0.49 UG/ML Sodium Level 136 135-145 MMOL/L Potassium Level 4.1 3.6-5.0 MMOL/L Chloride Level 101 98-107 MMOL/L Carbon Dioxide Level 21 21-32 MMOL/L Anion Gap 14 5-14 MMOL/L Blood Urea Nitrogen 18 7-18 MG/DL Creatinine 0.62 0.60-1.30 MG/DL Estimat Glomerular Filtration Rate 102 BUN/Creatinine Ratio 29 Glucose Level 110 H 70-105 MG/DL Calcium Level 9.1 8.5-10.1 MG/DL Corrected Calcium 9.4 8.5-10.1 MG/DL Total Bilirubin 0.6 0.1-1.0 MG/DL Aspartate Amino Transf (AST/SGOT) 28 5-34 U/L Alanine Aminotransferase (ALT/SGPT) 21 0-55 U/L Alkaline Phosphatase 102 40-136 U/L Troponin I 1.612 *H <0.028 NG/ML Total Protein 7.1 6.4-8.2 GM/DL Albumin 3.6 3.2-4.5 GM/DL Urine Color YELLOW Urine Clarity CLEAR Urine pH 6.0 5-9 Urine Specific [place] 1.020 1.016-1.022 Urine Protein TRACE H NEGATIVE Urine Glucose (UA) NEGATIVE NEGATIVE Urine Ketones TRACE H NEGATIVE Urine Nitrite NEGATIVE NEGATIVE Urine Bilirubin NEGATIVE NEGATIVE Urine Urobilinogen 1.0 < = 1.0 MG/DL Urine Leukocyte Esterase NEGATIVE NEGATIVE Urine RBC (Auto) NEGATIVE NEGATIVE Urine RBC 0-2 /HPF Urine WBC 0-2 /HPF Urine Crystals PRESENT H /LPF Urine Amorphous Sediment RARE DEL URATES H /LPF Urine Bacteria NEGATIVE /HPF Urine Casts NONE /LPF Urine Mucus NEGATIVE /LPF Urine Culture Indicated NO My Orders Orders - JOHAN LIZARRAGA DO Cbc With Automated Diff (05/02/22 13:35) Protime With Inr (05/02/22 13:35) Partial Thromboplastin Time (05/02/22 13:35) Comprehensive Metabolic Panel (05/02/22 13:35) Troponin I Crystal (05/02/22 13:35) Chest 1 View, Ap/Pa Only (05/02/22 13:35) Catheter(Urinary) Insert & Ass 03,15 (05/02/22 13:35) Ekg Tracing (05/02/22 13:35) Nothing By Mouth (05/02/22 Lunch) Accucheck Stat ONCE (05/02/22 13:35) Ed Iv/Invasive Line Start (05/02/22 13:35) Vital Signs Stroke Patient Q15M (05/02/22 13:35) Intake & Output 06,14,22 (05/02/22 13:35) Monitor-Rhythm Ecg Trace Only (05/02/22 13:35) Dysphagia Screening Tool Q10MX1 (05/02/22 13:35) Lipid Panel (05/03/22 06:00) Lidocaine 2% (Urojet) (Xylocaine Urojet) (05/02/22 13:45) Ct Angio Head/Neck (05/02/22 13:37) Fibrin Degradation Products (05/02/22 13:40) Ua Culture If Indicated (05/02/22 13:40) Accucheck Stat ONCE (05/02/22 13:40) Ed Iv/Invasive Line Start (05/02/22 13:40) Ed Iv/Invasive Line Start (05/02/22 13:40) Vital Signs Stroke Patient Q15M (05/02/22 13:40) Ct Head Wo-R/O Stroke (05/02/22 13:40) O2 (05/02/22 13:40) Intake & Output 06,14,22 (05/02/22 13:40) Dysphagia Screening Tool Q10MX1 (05/02/22 13:40) Post Thrombolytic Adminstratio (05/02/22 13:40) Iohexol Injection (Omnipaque 350 Mg/Ml 1 (05/02/22 13:45) Di Iv Start (Assessment) .IV start (05/02/22 13:40) Received Contrast (Hold Metformin- Contr (05/02/22 13:45) Ns (Ivpb) (Sodium Chloride 0.9% Ivpb Bag (05/02/22 13:45) Manual Differential (05/02/22 13:29) Tenecteplase (Tnkase) (05/02/22 14:00) Post Thrombolytic Adminstratio (05/02/22 13:49) Ct Head Wo (05/03/22 13:49) Medications Given in ED Current Medications Medications Dose Ordered Sig/Ibrahima Route Start Time Stop Time Status Last Admin Dose Admin Iohexol 100 ml ONCE ONCE IV 05/02/22 13:45 05/02/22 13:46 DC 05/02/22 13:46 75 ML Lidocaine HCl 10 ml ONCE ONCE TOP 05/02/22 13:45 05/02/22 13:46 DC 05/02/22 14:15 10 ML Sodium Chloride 100 ml ONCE ONCE IV 05/02/22 13:45 05/02/22 13:46 DC 05/02/22 13:46 100 ML Vital Signs/I&O 05/02/22 13:25 Temp 36.3 Pulse 80 Resp 20 B/P (MAP) 140/87 (104) Pulse Ox 91 O2 Delivery Nasal Cannula O2 Flow Rate 2.00 Blood Pressure Mean: 104 Critical Care Note Critical Care Total Time (minutes) 75 Departure Communication (Admissions) Independently reviewed the CT scan without contrast showing a hyperdense MCA sign on the right. I spoke with Dr. Ascencio at [facility], stroke ne urology at 1345. Initially felt the patient was a candidate for lytics however her arrived and told me she had a stroke in March of this year disqualifying her for this therapy. She was supposed to get a port placed for treatment of lung cancer but was still taking Plavix so this was stopped on . She does have a PFO and this combination likely put her at higher risk for CVA. Independently reviewed CT angiography head and neck and there appears to be an occlusion of the M1 branch of the MCA on the right side. This is confirmed by radiology, called at 1400.. I called back and told him the images have been clouded in the findings of the imaging at [address] Ascencio who accepts patient in transfer. Did inform that patient was not candidate for lytics. Helicopter is here and ready to transfer patient to [facility] [place] at 1435 Impression Primary Impression: Acute right MCA stroke Disposition: XF SHT-TRM HOSP Condition: Critical Departure-Patient Inst. Referrals: THERESA SINCLAIR MD (PCP) Primary Care Physician LEATHA FONSECA NP (Family) Primary Care Physician JOHAN LIZARRAGA DO May 02, 2022 13:58
[2022-05-02 14:00] LABS: TOTAL PROTEIN 7.1 GM/DL (6.4-8.2)
[2022-05-02] MEDS ORDERED: TENECTEPLASE 50 MG VIAL IV ONE (14:00)
[2022-05-02 14:01] LABS: BILIRUBIN,TOTAL 0.6 MG/DL (0.1-1.0)
[2022-05-02 14:03] LABS: CREATININE SERUM 0.62 MG/DL (0.60-1.30)
--- NOTE | 2022-05-02 14:06 | Diagnostic Imaging Report ---
EXAMINATION: CT head without contrast. TECHNIQUE: Multiple contiguous axial images were obtained through the brain without the use of intravenous contrast. All CT scans use one or more of the following dose optimizing techniques: automated exposure control, MA and/or KvP adjustment based on patient size and exam type or iterative reconstruction. HISTORY: Stroke alert COMPARISON: 03/18/2021 FINDINGS: There is loss of -white matter differentiation in the insular ribbon and inferior right frontal lobe in the MCA territory. There is an old left occipital infarct. The right MCA and M1 are hypodense relative to the left. No mass effect or midline shift. The ventricles are normal in size and configuration. Basilar cisterns are patent. There are no intra- or extra-axial fluid collections. There is no intracranial hemorrhage. The orbits are normal. Paranasal sinuses are normal. Mastoid air cells are clear. No soft tissue abnormality is seen. No osseus lesions or fractures are seen. IMPRESSION: 1. Large right MCA territory infarct with hyperdense MCA suggestive of an acute thrombus. Findings called to the Emergency Room doctor by Dr. Iraheta on 05/02/2022 at 2:00 PM Dictated by: Dictated on workstation # [id number]
--- NOTE | 2022-05-02 14:07 | Diagnostic Imaging Report ---
INDICATION: stroke protocol. TECHNIQUE: Single view chest 1:45 PM. CORRELATION STUDY: 03/18/2022 FINDINGS: Heart size enlarged. Mediastinum prominent. Vasculature overall appears increased from prior. Progressive and extensive infiltrate of the right lung base along with right pleural effusion. Left lung generally clear. IMPRESSION: 1. Extensive opacity the right lung base likely infiltrate, edema and/or atelectasis along with small effusion. Dictated by: Dictated on workstation # [id number]
--- NOTE | 2022-05-02 14:14 | Diagnostic Imaging Report ---
EXAMINATION: CT angiography head and neck with and without contrast. TECHNIQUE: After intravenous administration of contrast, thin section axial CT angiography of the head and neck was performed. Source data was reformatted into 3D MIP projections. All CT scans use one or more of the following dose optimizing techniques: automated exposure control, MA and/or KvP adjustment based on a patient size and exam type, or iterative reconstruction. Any measurements of internal carotid artery stenosis are provided according to NASCET criteria. CT angiogram was post-processed using AI detection software to include quantitative measurements of cerebral blood flow and automated results notification to the stroke and/or neurointerventional team. HISTORY: Stroke COMPARISON: None available. FINDINGS: The carotid arteries are normal without stenosis. Vertebral arteries are normal without stenosis. Intracranial internal carotid arteries are normal. There is abrupt occlusion of the right M1 with minimal flow throughout the right MCA territory. The posterior cerebral arteries are normal. The anterior cerebral arteries are normal. There is no large vessel occlusion. No aneurysm or vascular malformation is seen. There is loss of -white matter differentiation throughout the right MCA territory. No mass effect or midline shift. The ventricles are normal in size and configuration. Basilar cisterns are patent. There are no intra- or extra-axial fluid collections. There is no intracranial hemorrhage. The orbits are normal. Paranasal sinuses are normal. Mastoid air cells are clear. No soft tissue abnormality is seen. No osseus lesions or fractures are seen. There is left supraclavicular lymphadenopathy measuring up to 1.3 cm. There are enlarged lymph nodes in the upper mediastinum measuring up to 1.1 cm. The muscles of the neck are normal. Fascial planes are preserved and the deep spaces of the neck are normal. Limited views of the superior thorax show right pleural effusion. No osseous lesions or fractures are seen. IMPRESSION: 1. 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 2. Mediastinal and left supraclavicular lymphadenopathy. Follow-up chest CT with contrast recommended to evaluate for an underlying cause. Findings called to Dr. ly by Dr. Iraheta on 05/02/2022 at 2:02p.m. Dictated by: Dictated on workstation # [id number]
[2022-05-02 14:16] LABS: BILIRUBIN,URINE NEGATIVE (NEGATIVE); CLARITY,URINE CLEAR; COLOR,URINE YELLOW; GLUCOSE, URINE (UA) NEGATIVE (NEGATIVE); KETONES,URINE TRACE (NEGATIVE); LEUKOCYTE ESTERASE ,URINE NEGATIVE (NEGATIVE); NITRITE,URINE NEGATIVE (NEGATIVE); PROTEIN,URINE TRACE (NEGATIVE)
[2022-05-02 14:26] LABS: BAND NEUTROPHILS 1 %; BASOPHILS % (MANUAL) 0 %; EOSINOPHILS % (MANUAL) 1 %; LYMPHOCYTES % (MANUAL) 4 %; MONOCYTES % (MANUAL) 4 %; NEUTROPHILS % (MANUAL) 90 %; RBC MORPH NORMAL
[2022-05-02 14:27] LABS: AMORPHOUS SEDIMENT,UR RARE AMOR URATES /LPF; BACTERIA,URINE NEGATIVE /HPF; RBC,URINE 0-2 /HPF; WBC,URINE 0-2 /HPF
[2022-05-02 14:42] VITALS: BP 147/104
== END 2022-05-02 14:42 | disposition short-term general hospital (02) ==
LOC: EDUNIT# 13:19 → ER 13:22
DX: I63.511 Cerebral infarction due to unspecified occlusion or stenosis of right middle cerebral artery (principal); R53.1 Weakness; R29.715 NIHSS score 15
CPT/HCPCS: 36415; 51702; 70450; 70496; 70498; 71045; 80053; 81000; 84484; 85007; 85027; 85379; 85610; 85730; 93005; 93041